=== PATIENT | male | born 2000 | race Caucasian/White ===

== ENCOUNTER 2022-06-11 08:00 | Outpatient (CLI) | payer MEDICAID, OTHER ==
--- NOTE | 2022-06-11 16:30 | XRAY Report ---
PROCEDURE: Hand 3 View RT INDICATIONS: RIGHT HAND PAIN TECHNIQUE: 3 views of the hand(s) acquired. COMPARISON: None FINDINGS: Bones: No fractures or dislocations. No suspicious bony lesions. Soft tissues: No suspicious soft tissue calcifications. IMPRESSION: No acute right hand fracture or dislocation. Reviewed by: Clay Landeros MD on 06/11/2022 4:28 PM PDT Approved by: Clay Landeros MD on 06/11/2022 4:28 PM PDT Station ID: [id number]
== END 2022-06-11 23:59 | disposition home or self-care (01) ==
LOC: DI.S 08:00
PROVIDERS: ATTEND Registered Nurse
DX: M79.641 Pain in right hand (principal)

== ENCOUNTER 2022-06-18 08:00 | Outpatient (CLI) | payer OTHER ==
--- NOTE | 2022-06-18 15:34 | XRAY Report ---
PROCEDURE: Hand 3 View RT INDICATIONS: RIGHT HAND PAIN TECHNIQUE: 3 views of the hand(s) acquired. COMPARISON: X-ray hand 06/11/2022. FINDINGS: Bones: There is appearance of bony overlap with lucency at the base of the fifth metacarpal. It is no t well seen on all images. No suspicious bony lesions. Soft tissues: No suspicious soft tissue calcifications. IMPRESSION: Question appearance of lucency with bony overlap at the base of the fifth metacarpal. Fracture within this region cannot be excluded. It is poorly evaluated as it is not well seen on all views. Recommen d correlation point tenderness within this region and as indicated further evaluation with CT or shor t interval x-ray follow-up with positioning to better delineate this region is recommended. Reviewed by: Shruthi Holliday MD on 06/18/2022 3:33 PM PDT Approved by: Shruthi Holliday MD on 06/18/2022 3:33 PM PDT Station ID: [id number]
== END 2022-06-18 23:59 | disposition home or self-care (01) ==
LOC: DI.S 08:00
PROVIDERS: ATTEND Physician Assistant
DX: M79.641 Pain in right hand (principal)

== ENCOUNTER 2024-02-29 12:01 | Outpatient (CLI) | payer OTHER | END 2024-02-29 23:59 | disposition critical access hospital (66) | LOC: EMS 12:01 | DX: R10.84 Generalized abdominal pain (principal); R11.2 Nausea with vomiting, unspecified | CPT/HCPCS: A0425; A0427 ==

== ENCOUNTER 2024-02-29 12:35 | Emergency (ER) | payer OTHER ==
[2024-02-29] MEDS: DROPERIDOL 5 MG/2 ML VIAL IVP STA (12:52)
[2024-02-29] MEDS: SODIUM CHLORIDE 0.9% 1,000 ML IV STA ×2 (12:53→13:54)
[2024-02-29 12:58] VITALS: O2SAT 98
[2024-02-29 13:00] LABS: BASOPHILS % (AUTO) 0.2 %; HCT - HEMATOCRIT 42.9 % (42.0-52.0); HGB - HEMOGLOBIN 14.9 g/dL (14.0-18.0); LYMPHOCYTES % (AUTO) 1.2 %; MEAN CORPUSCULAR HEMOGLOBIN 31.6 pg (27.0-31.0); MEAN CORPUSCULAR HGB CONC 34.7 g/dL (32.0-36.0); MEAN CORPUSCULAR VOLUME 91.1 fL (80.0-94.0); MEAN PLATELET VOLUME 9.8 fL (7.4-11.4); MONOCYTES % (AUTO) 9.1 %; NEUTROPHILS % (AUTO) 89.1 %; PLT - PLATELET COUNT 314 10^3/uL (130-450); RED BLOOD COUNT 4.71 10^6/uL (4.70-6.10); RED CELL DISTRIBUTION WIDTH 11.9 % (12.0-15.0); WHITE BLOOD COUNT 19.4 x10^3/uL (4.8-10.8)
[2024-02-29 13:04] LABS: ABNORMAL LYMPHS % (MANUAL) 0 %
--- NOTE | 2024-02-29 13:07 | ED Physician Documentation ---
PD HPI NVD - Stated complaint Stated Complaint: ABD PX/VOMITING - Chief complaint Chief Complaint: Abd Pain - History obtained from History obtained from: Patient, EMS - Additonal information Additional information: Patient is a 23-year-old male with no significant past medical history presenting for evaluation of epigastric abdominal pain with nausea and vomiting since yesterday afternoon around 2:00. Patient states his emesis has had some black flecks in it. He went to the walk-in clinic and they recommended he come to the emergency department for evaluation. Denies alcohol use. Denies sick contacts with similar symptoms. Denies eating anything that would have triggered his symptoms. Does use cannabis regularly. Does not take NSAIDs or any blood thinners. EMS has denied noticing any emesis but he did have an episode of dry heaving and EMS reported there was some saliva but there was no coffee ground color to it or blood. Review of Systems Constitutional: denies: Fever Cardiac: denies: Chest pain / pressure Respiratory: denies: Dyspnea GI: reports: Abdominal Pain, Nausea, Vomiting. denies: Diarrhea, Bloody / black stool : denies: Dysuria PD PAST MEDICAL HISTORY - Past Medical History Past Medical History: No Other Past Medical History: smokes marijuana occasionally. - Past Surgical History Past Surgical History: No - Present Medications Home Medications: Ambulatory Orders Medication Instructions Recorded Confirmed Ondansetron Odt [Zofran] 4 mg TL Q6H PRN #10 tablet 02/29/24 - Allergies Allergies/Adverse Reactions: Allergies Allergy/AdvReac Type Severity Reaction Status Date / Time No Known Drug Allergies Allergy Verified 02/29/24 12:49 - Social History Does the pt smoke?: No Smoking Status: Never smoker Does the pt drink ETOH?: Yes Does the pt have substance abuse?: No Substance Use and Type: Marijuana - POLST Patient has POLST: No PD ED PE NORMAL - General General: Alert and oriented X 3, No acute distress, Well developed/nourished - HEENT HEENT: Atraumatic - Neck Neck: Supple, no meningeal sign - Cardiac Cardiac: RRR, Strong equal pulses - Respiratory Respiratory: No respiratory distress, Clear bilaterally - Abdomen Abdomen: Normal bowel sounds, Soft, Non distended, Other (Mild epigastric tenderness) - Derm Derm: Warm and dry - Neuro Neuro: Normal speech Results - Vitals Vitals: Vital Signs - 24 hr 02/29/24 02/29/24 15:17 16:42 Heart Rate 88 85 Respiratory 20 16 Rate Blood Pressure 117/78 110/90 H O2 Saturation 98 98 Oxygen O2 Source Room air - EKG (time done) 1339 EKG releavant findings:: EKG personally interpreted by author of this note. Relevant findings are: Rate 95, normal sinus rhythm, no STEMI, QTc 493, - Labs Labs: Laboratory Tests 02/29/24 02/29/24 02/29/24 12:52 12:52 15:04 WBC 19.4 H RBC 4.71 Hgb 14.9 Hct 42.9 MCV 91.1 MCH 31.6 H MCHC 34.7 RDW 11.9 L Plt Count 314 MPV 9.8 Neut # (Auto) Not Reportable Lymph # (Auto) Not Reportable Pershing # (Auto) Not Reportable Eos # (Auto) Not Reportable Baso # (Auto) Not Reportable Absolute Nucleated RBC Not Reportable Total Counted 100 Band Neuts % (Manual) 1 Abnorm Lymph % (Manual) 0 Nucleated RBC % Not Reportable Neutrophils # (Manual) 16.3 H Lymphocytes # (Manual) 0.8 L Monocytes # (Manual) 2.3 H Eosinophils # (Manual) 0.0 Basophils # (Manual) 0.0 Differential Comment MANUAL DIFFERENTIAL Platelet Estimate NORMAL (130-450,000) Platelet Morphology NORMAL APPEARANCE RBC Morph Micro Appear NORMAL APPEARANCE Sodium 134 L 132 L Potassium 4.3 4.3 Chloride 83 L 93 L Carbon Dioxide 25 24 Anion Gap 26.0 H 15.0 H BUN 34 H 32 H Creatinine 1.9 H 1.7 H Estimated GFR (MDRD) 44 L 50 L Glucose 135 H 90 Calcium 9.5 7.6 L Total Bilirubin 2.4 H 1.7 H AST 63 H 47 H ALT 32 23 Alkaline Phosphatase 76 57 Total Protein 8.8 6.6 Albumin 5.4 4.1 Globulin 3.4 2.5 Albumin/Globulin Ratio 1.6 1.6 Lipase < 10 L PD Medical Decision Making - ED course Complexity details: reviewed results, re-evaluated patient, d/w patient ED course: Pt with N/V x 1 day. Labs reviewed including CBC and chemistries. WBC 19. Chemistries with significant findigns including Na 134, Cl 83, AG 26, Cr 1.9, T bili 2.4. Suspect dehydration as pt is relatively well appearing. Pt given IV droperidol and 2L IV fluids with improvement in symptoms. Ct abd/pelvis obtained given lab abnormalities with no acute findings. Pt feeling much better and repeat chemistries trending in the right direction. Reviewed work up with patient including lab findings, need for continued hydration via PO intake and close follow up for lab recheck. Pt also counseled to avoid marijuana use due to possibility of episode being from cannabis hyperemesis syndome. Abdominal exam remain benign and pt counseled on concerning symptoms to return for. Departure - Departure Disposition: Home, Self Care Clinical Impression: Nausea & vomiting, Dehydration, Hypocalcemia, DAX (acute kidney injury), Leukocytosis Condition: Good Instructions: ED Nausea Vomiting Prescriptions: Ondansetron Odt [Zofran] 4 mg TL Q6H PRN #10 tablet PRN Reason: Nausea / Vomiting Comments: You were evaluated for upper abdominal pain with nausea and vomiting. Your white blood cell count is elevated and you did have electrolyte abnormalities suggestive of dehydration. We did give you a large amount of IV fluids and rech ecked her labs which do show improvement which is a good sign. Your CT scan does not show signs of appendicitis. Please continue to stay hydrated. I sent a prescription for an antinausea medication to [facility] in [place]. I would recommend recheck of your labs in a week to make sure that your electrolytes have gotten better. Return to the ER with any worsening symptoms. Forms: PCP List, Activity restrictions Discharge Date/Time: 02/29/24 16:42
[2024-02-29 13:26] LABS: ALBUMIN 5.4 g/dL (3.2-5.5); ALBUMIN/GLOBULIN RATIO 1.6 (1.0-2.2); ALKALINE PHOSPHATASE 76 IU/L (42-121); ALT ALANINE AMINOTRANSFERASE 32 IU/L (10-60); AST ASPARTATE AMINOTRANSFERASE 63 IU/L (10-42); BILIRUBIN,TOTAL 2.4 mg/dL (0.2-1.0); BUN - BLOOD UREA NITROGEN 34 mg/dL (6-20); CALCIUM 9.5 mg/dL (8.5-10.3); CARBON DIOXIDE - CO2 25 mmol/L (21-32); CHLORIDE 83 mmol/L (101-111); CREATININE 1.9 mg/dL (0.6-1.3); GFR - MDRD 44 (>89); GLUCOSE 135 mg/dL (74-104); LIPASE < 10 U/L (11-82); POTASSIUM 4.3 mmol/L (3.5-4.5); SODIUM 134 mmol/L (135-145); TOTAL PROTEIN 8.8 g/dL (6.4-8.9)
[2024-02-29] MEDS ORDERED: iohexoL-300 100 ML VIAL ONE (14:08)
[2024-02-29 14:33] LABS: BAND NEUTROPHILS % (MANUAL) 1 %; LYMPHOCYTES # (MANUAL) 0.8 10^3/uL (1.5-3.5); LYMPHOCYTES % (MANUAL) 4 %; MONOCYTES # (MANUAL) 2.3 10^3/uL (0.0-1.0); NEUTROPHILS # (MANUAL) 16.3 10^3/uL (1.5-6.6); PLATELET MORPHOLOGY NORMAL APPEARANCE (NORMAL); RBC MORPHOLOGY (MULTIPLE) NORMAL APPEARANCE (NORMAL)
[2024-02-29 14:34] LABS: DIFFERENTIAL COMMENT MANUAL DIFFERENTIAL; PLATELET ESTIMATE, MANUAL NORMAL (130-450,000) (NORMAL)
--- NOTE | 2024-02-29 15:16 | CT Report ---
PROCEDURE: Abdomen/Pelvis W INDICATIONS: upper abd pain/vomiting/WBC 19 CONTRAST: Omnipaque 300 100ml TECHNIQUE: After the administration of intravenous contrast, a CT scan of the abdomen and pelvis was performed. Images were recorded and evaluated at appropriate window settings. Reformats: coronal and sagittal. F or radiation dose reduction, the following was used: automated exposure control, adjustment of mA and /or kV according to patient size. COMPARISON: None. FINDINGS: Image quality: Diagnostic. Lower chest: Unremarkable. Liver: Hepatic steatosis. Gallbladder and biliary tree: Unremarkable. Spleen: No splenomegaly. Pancreas: No pancreatic ductal dilation. Adrenals: No adrenal nodule. Kidneys and ureters: No hydronephrosis. No renal cystic lesion which requires follow up. No solid mas s. Stomach, bowel and peritoneum: No obstruction. There is mild thickened appearance of the colon. This is most prominent in the transverse and descending colon. No pathologic free fluid. Hiatal hernia. Ap pendix is normal. Lymph nodes: No central or retroperitoneal adenopathy. Vessels: No infrarenal aortic aneurysm. PELVIS Reproductive organs: Unremarkable. Bladder: No abnormal wall thickening, accounting for underdistention. Pelvic lymph nodes: No pelvic adenopathy by size criteria. Bones: No aggressive osseous abnormality. Other: No significant ventral or inguinal hernia. IMPRESSION: Mild appearance of thickening within the transverse and descending colon suspected to be related to i ncomplete distention given lack of associated inflammatory change. Appendix is normal. Reviewed by: Shruthi Holliday MD on 02/29/2024 3:15 PM PDT Approved by: Shruthi Holliday MD on 02/29/2024 3:15 PM PDT Station ID: [id number]
[2024-02-29 15:22] LABS: ALBUMIN 4.1 g/dL (3.2-5.5); ALBUMIN/GLOBULIN RATIO 1.6 (1.0-2.2); BILIRUBIN,TOTAL 1.7 mg/dL (0.2-1.0); CALCIUM 7.6 mg/dL (8.5-10.3); CREATININE 1.7 mg/dL (0.6-1.3); POTASSIUM 4.3 mmol/L (3.5-4.5); TOTAL PROTEIN 6.6 g/dL (6.4-8.9)
[2024-02-29] MEDS: CALCIUM GLUC 1,000MG/50ML-NACL 1,000 MG/50 ML BAG IV STA (15:39)
[2024-02-29 16:48] VITALS: BP 110/90
[2024-02-29] MEDS: iohexoL-300 100 ML VIAL IVP ONE (17:12)
== END 2024-02-29 16:42 | disposition home or self-care (01) ==
LOC: EDUNIT# → ED 12:35
DX: N17.9 Acute kidney failure, unspecified (principal); E86.0 Dehydration; E83.51 Hypocalcemia; D72.829 Elevated white blood cell count, unspecified
CPT/HCPCS: 36415; 74177; 80053; 83690; 85025; 93005; 96361; 96365; 96375; 99284; Q9967